=== PATIENT | male | born 1965 | race Caucasian/White ===

== ENCOUNTER 2019-02-03 12:09 | Emergency (ER) | payer OTHER ==
[~2019-02-03] VITALS: Ht 180.3 cm; Wt 65.8 kg
[2019-02-03 12:10] VITALS: BP_SYST 149
--- NOTE | 2019-02-03 12:10 | NUR ---
BROUGHT BACK TO BED #7 AND TRIAGED. REPORT GIVEN TO LOU
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
--- NOTE | 2019-02-03 12:34 | NUR ---
DR GONZALEZ AT BEDSIDE FOR EVALUATION
--- NOTE | 2019-02-03 13:10 | NUR ---
Informed patient that the MD's still waiting for the result of the CT. Patient verbalized understanding.
[2019-02-03 14:13] VITALS: BP_SYST 148
--- NOTE | 2019-02-03 14:13 | NUR ---
Patient given written and verbal discharge instructions and verbalizes understanding. ER MD discussed with patient the results and treatment provided. Patient in stable condition. ID arm band removed. No Rx given. Patient educated on pain management and to follow up with PMD. Pain Scale 0/10 . Opportunity for questions provided and answered. Medication side effect fact sheet provided.
== END 2019-02-03 14:13 | disposition home or self-care (01) ==
LOC: SED 12:09
DX: R25.1 Tremor, unspecified (principal); V49.9XXA Car occupant (driver) (passenger) injured in unspecified traffic accident, initial encounter; Y93.89 Activity, other specified; Y92.488 Other paved roadways as the place of occurrence of the external cause; Y99.8 Other external cause status
CPT/HCPCS: 70450; 99284; J7030